=== PATIENT | female | born 1980 | race Caucasian/White ===

== ENCOUNTER 2018-01-17 19:55 | Emergency (ER) | payer OTHER ==
[2018-01-17] MEDS: ONDANSETRON (ODT) 4 MG TAB ODT (22:41)
[2018-01-17] MEDS: predniSONE 20 MG TAB PO (22:42)
== END 2018-01-17 23:48 | disposition home or self-care (01) ==
LOC: FTE 19:55
DX: R42 Dizziness and giddiness (principal); H93.8X2 Other specified disorders of left ear; R11.2 Nausea with vomiting, unspecified
CPT/HCPCS: 81025; 99283